=== PATIENT | female | born 1975 | race Caucasian/White ===

== ENCOUNTER 2016-11-25 19:37 | Inpatient (IN) | payer OTHER ==
[~2016-11-25] VITALS: Ht 172.7 cm; Wt 67.5 kg
[~2016-11-25 19:37] MED LIST: ADDE30CA PO; BACT800T5 PO; CLON1 PO; FLUC200T63 PO; LEVO1CAP3; METHO500 PO; OMEP40CA2; SYNT88TA PO
[2016-11-25 20:35] VITALS: BP 119/74; PULSE 69; RESP 16; TEMP 97.8; O2SAT 98
[2016-11-25] MEDS ORDERED: BUTA1CAP PO (20:35)
[2016-11-25] MEDS ORDERED: OMEP40CA2 PO (20:35)
[2016-11-25] MEDS ORDERED: ESZO1TAB PO (20:35)
[2016-11-25] MEDS ORDERED: ADDE30XR PO (20:35)
[2016-11-25] MEDS ORDERED: LEVO.125 PO (20:35)
[2016-11-25] MEDS ORDERED: CLON1 PO (20:35)
[2016-11-25] MEDS ORDERED: BACL10TA PO (20:35)
[2016-11-25 20:38] LABS: BASOPHIL % 1.1 % (0.0-2.0); EOSINOPHIL # 0.1 TH/MM3 (0-0.4); HEMATOCRIT 35.2 % (35.0-46.0); HEMO FLAGS DIFF FINAL; LYMPH % 45.4 % (9.0-44.0); LYMPHOCYTE # 2.1 TH/MM3 (1.0-4.8); MEAN CELL VOLUME 92.4 FL (80.0-100.0); MEAN CORPUSCULAR HEMOGLOBIN 32.8 PG (27.0-34.0); MEAN CORPUSCULAR HGB CONC 35.5 % (32.0-36.0); MONO % 8.4 % (0.0-8.0); NEUT % 43.1 % (16.0-70.0); PLATELET COUNT 181 TH/MM3 (150-450); RED CELL DISTRIBUTION WIDTH 13.7 % (11.6-17.2); WHITE BLOOD COUNT 4.6 TH/MM3 (4.0-11.0)
[2016-11-25 20:54] LABS: ANION GAP 8 MEQ/L (5-15); AST (GOT) 30 U/L (15-37); BICARBONATE 27.6 MEQ/L (21.0-32.0); BLOOD UREA NITROGEN 17 MG/DL (7-18); CHLORIDE 104 MEQ/L (98-107); GLOMERULAR FILTRATION RATE 88 ML/MIN (>89); POTASSIUM 3.6 MEQ/L (3.5-5.1); SODIUM (NA) 140 MEQ/L (136-145)
[2016-11-25 20:58] LABS: ACETAMINOPHEN 7.1 MCG/ML (10.0-30.0); ALKALINE PHOSPHATASE 67 U/L (45-117); ALT (GPT) 26 U/L (10-53); TOTAL BILIRUBIN ADULT 0.3 MG/DL (0.2-1.0)
--- NOTE | 2016-11-25 22:14 | PD ---
HPI Chief Complaint: Psychiatric Symptoms Time Seen by Provider: 22:09 Travel History International Travel<30 days: No Contact w/Intl Traveler<30days: No Traveled to known affect area: No History of Present Illness HPI 41-year-old female that presents to the ED for evaluation of psych. Patient was Jorge acted after apparent she contacted the suicidal hotline stating that she was suicidal. Patient denies this is all or homicidal ideation at this time.. She does have a history of ADHD, fibromyalgia, thyroid disease. Per my examination patient sleeping. She does not appear to be in acute distress. She denies any complaints to me. She has allergies to amoxicillin, azithromycin , penicillin. Patient has been here multiple times in the past. Unclear as to the length of time patient's has had this suicidal ideation but patient has been here for similar in the past. Denies any recent falls or injuries. No recent substance abuse. PFSH Past Medical History ADHD: Yes Asthma: Yes Autoimmune Disease: Yes (FIBROMYALGIA) Bipolar Disorder: Yes Anxiety: Yes Depression: Yes Diminished Hearing: No Endocrine: Yes (HYPOTHYROID) Fibromyalgia: Yes (15 YEARS) Gastrointestinal Disorders: No Implanted Vascular Access Dvce: No Thyroid Disease: Yes ?: Not : 1 Past Surgical History Section: Yes Gynecologic Surgery: Yes ( 11 YRS AGO) Other Surgery: Yes Social History Alcohol Use: No Tobacco Use: Yes (1 PPD) Substance Use: Yes (ADMITS TO USING MARIJUANA FREQUENTLY) Allergies-Medications (Allergen,Severity, Reaction): Coded Allergies: Azithromycin (Verified Allergy, Mild, nausea, 11/25/16) Amoxicillin (Verified Allergy, Unknown, 11/25/16) Penicillin (Verified Allergy, Unknown, UNKNOWN REACTION, 11/25/16) Reported Meds & Prescriptions Reported Meds & Active Scripts Active Reported Synthroid (Levothyroxine Sodium) 125 Mcg Tab 125 Mcg PO DAILY Baclofen 10 Mg Tab 10 Mg PO Q8HR PRN Klonopin (Clonazepam) 1 Mg Tab 1 Mg PO TID Fioricet (Cwauxjdvtb-Ivpdfgfqnrosd-Krxonnmo) 50-300-40 Mg Cap 1 Cap PO Q4H PRN Lunesta (Eszopiclone) 2 Mg Tab 2 Mg PO HS PRN Omeprazole 40 Mg Cap 40 Mg PO DAILY Adderall Xr 24 HR (Amphetamine/Dextroamphetamine) 30 Mg Cap 30 Mg PO DAILY Once daily in the morning. Review of Systems Except as stated in HPI: all other systems reviewed are Neg Physical Exam Narrative GENERAL: SKIN: Warm and dry. HEAD: Atraumatic. Normocephalic. EYES: Pupils equal and round. No scleral icterus. No injection or drainage. ENT: No nasal bleeding or discharge. Mucous membranes pink and moist. Tongue is midline. No uvula deviation. NECK: Trachea midline. No JVD. CARDIOVASCULAR: Regular rate and rhythm. No murmurs, S3, S4. RESPIRATORY: No accessory muscle use. Clear to auscultation. Breath sounds equal bilaterally. GASTROINTESTINAL: Abdomen soft, non-tender, nondistended. Hepatic and splenic margins not palpable. MUSCULOSKELETAL: Extremities without clubbing, cyanosis, or edema. No obvious deformities. Full range of motion of the upper and lower extremities bilaterally. 2+ pulses bilaterally. NEUROLOGICAL: Awake and alert. No obvious cranial nerve deficits. Motor grossly within normal limits. Five out of 5 muscle strength in the arms and legs. Normal speech. PSYCHIATRIC: Anxious mood and affect; insight and judgment normal. Data Data Last Documented VS Vital Signs Date Time Temp Pulse Resp B/P Pulse Ox O2 Delivery O2 Flow Rate FiO2 11/25/16 20:35 97.8 69 16 119/74 98 Orders Complete Blood Count With Diff (11/25/16 19:52) Comprehensive Metabolic Panel (11/25/16 19:52) Psych Screen (11/25/16 19:52) Drug Screen, Random Urine (11/25/16 19:52) Alcohol (Ethanol) (11/25/16 19:52) Salicylates (Aspirin) (11/25/16 19:52) Tylenol (Acetaminophen) (11/25/16 19:52) Labs Laboratory Tests Test 11/25/16 20:15 White Blood Count 4.6 TH/MM3 Red Blood Count 3.80 MIL/MM3 Hemoglobin 12.5 GM/DL Hematocrit 35.2 % Mean Corpuscular Volume 92.4 FL Mean Corpuscular Hemoglobin 32.8 PG Mean Corpuscular Hemoglobin 35.5 % Concent Red Cell Distribution Width 13.7 % Platelet Count 181 TH/MM3 Mean Platelet Volume 8.9 FL Neutrophils (%) (Auto) 43.1 % Lymphocytes (%) (Auto) 45.4 % Monocytes (%) (Auto) 8.4 % Eosinophils (%) (Auto) 2.0 % Basophils (%) (Auto) 1.1 % Neutrophils # (Auto) 2.0 TH/MM3 Lymphocytes # (Auto) 2.1 TH/MM3 Monocytes # (Auto) 0.4 TH/MM3 Eosinophils # (Auto) 0.1 TH/MM3 Basophils # (Auto) 0.0 TH/MM3 CBC Comment DIFF FINAL Differential Comment Sodium Level 140 MEQ/L Potassium Level 3.6 MEQ/L Chloride Level 104 MEQ/L Carbon Dioxide Level 27.6 MEQ/L Anion Gap 8 MEQ/L Blood Urea Nitrogen 17 MG/DL Creatinine 0.73 MG/DL Estimat Glomerular Filtration 88 ML/MIN Rate Random Glucose 83 MG/DL Calcium Level 8.6 MG/DL Total Bilirubin 0.3 MG/DL Aspartate Amino Transf 30 U/L (AST/SGOT) Alanine Aminotransferase 26 U/L (ALT/SGPT) Alkaline Phosphatase 67 U/L Total Protein 6.5 GM/DL Albumin 3.6 GM/DL Salicylates Level LESS THAN 1.7 MG/DL Acetaminophen Level 7.1 MCG/ML Ethyl Alcohol Level 6 MG/DL MDM Medical Decision Making Medical Screen Exam Complete: Yes Emergency Medical Condition: Yes Medical Record Reviewed: Yes Interpretation(s) CBC & BMP Diagram 11/25/16 20:15 tox negative Differential Diagnosis Depression versus suicidal ideation versus anxiety versus adjustment disorder versus mood disorder versus bipolar disorder versus schizophrenia versus paranoid disorder versus psychosis versus substance abuse versus alcohol abuse versus alcohol induced psychosis versus homicidality addition versus cutting versus personality disorder Narrative Course 41-year-old female that presents to the ED for evaluation of psych. Patient was properly examined and was found to have signs and symptoms consistent with appears to be psychiatric illness. No sign of acute medical distress at this time. Labs were drawn. Patient will be medically clear. Okay to be seen by psych. Mental health screening was discussed with the patient. Diagnosis Primary Impression: Suicidal ideation Elvin Qiu Nov 25, 2016 22:14
[2016-11-26] MEDS ORDERED: ALBUAER3 INH (00:16)
[2016-11-26 00:17] LABS: AMPHETAMINE, URINE POS (NEG); BARBITURATES, URINE POS (NEG); COCAINE, URINE NEG (NEG)
[2016-11-26 02:22] VITALS: BP 105/66; PULSE 67; RESP 18; O2SAT 97
[2016-11-26 10:13] VITALS: RESP 18
--- NOTE | 2016-11-26 16:43 | PD ---
History of Present Illness Chief Complaint: Psychiatric Symptoms Time Seen by Provider: 16:15 Travel History International Travel<30 Days: No Contact w/Intl Traveler<30days: No Known affected area: No Legal Status Legal Status: Jorge Act Jorge Act Signed By: Vickie Jennings History of Present Illness: History of Present Illness 41-year-old female with history of depression, ADHD, generalized anxiety disorder that presents to the ED under a BA for evaluation of psych. The BA report indicates that the patient called in to a medical hotline and made suicidal statements. Patient acknowledges that she called but that that she was calling her insurance company to get transportation to [facility] for admission. She states that after she was talking with the person she did admit to being depressed as well as suicidal. She reports that she has a long hx of psychiatric treatment including hospitalizations as well as having received ECT treatments. She has been off her antidepressants x 14 days after her PCP change her from Cymbalta to Fetzima and her insurance has not approved the medication. She also reports that he change her from Adderall XR to Adderall and it is not working. Patient reports the following symptoms depressed mood, increased need for sleep , irritability, feels like she has a black cloud hanging over her. Currently she feels she is not functioning and requires a medication adjustment. patietn has been isolative, withdrawn as well as not maintaining basic hygiene. PFSH Past Medical History ADHD: Yes Asthma: Yes Autoimmune Disease: Yes (FIBROMYALGIA) Bipolar Disorder: Yes Anxiety: Yes Depression: Yes Diminished Hearing: No Endocrine: Yes (HYPOTHYROID) Fibromyalgia: Yes (15 YEARS) Gastrointestinal Disorders: No Implanted Vascular Access Dvce: No Thyroid Disease: Yes ?: Not : 1 Past Surgical History Section: Yes Gynecologic Surgery: Yes ( 11 YRS AGO) Other Surgery: Yes Psychiatric History Psychiatric History Hx Psychiatric Treatment: HX OF BIPOLAR DISORDER, ANXIETY , ADHD. Previous hx of suicide attempt at age 20 years by overdose. History of Inpatient Treatment: Yes (Multiple. Last hospital8 months ago. ) Guns or firearms in home: No Social History Single female. Lives with partner of 5 years. Has a 15 year old child. Currently unemployed. She is applying for disability. Hx Alcohol Use: No Hx Tobacco Use: Yes (1 PPD) Hx Substance Use: Yes (ADMITS TO USING MARIJUANA FREQUENTLY) Substance Use Type: Alcohol, Marijuana, Nicotine/Cigarettes, Prescription Medications, Benzos (Valium,Xanax), Cocaine Other Substances Used: ADMITS TO USING ETOH ON OCCASION AND MARIJUANA Hx of Substance Use Treatment: Yes Family Psychiatric History None reported. Allergies-Medications (Allergen,Severity, Reaction): Coded Allergies: Azithromycin (Verified Allergy, Mild, nausea, 11/25/16) Amoxicillin (Verified Allergy, Unknown, 11/25/16) Penicillin (Verified Allergy, Unknown, UNKNOWN REACTION, 11/25/16) Reported Meds & Prescriptions Reported Meds & Active Scripts Active Reported Proair Hfa 8.5 GM Inh (Albuterol Sulfate) 90 Mcg/Act Aer 2 Puff INH Q4-6H PRN 108 mcg/actuation Synthroid (Levothyroxine Sodium) 125 Mcg Tab 125 Mcg PO DAILY Baclofen 10 Mg Tab 10 Mg PO Q8HR PRN Klonopin (Clonazepam) 1 Mg Tab 1 Mg PO TID Fioricet (Afuwhagymi-Suvtsmqysvxzf-Turrcsfq) 50-300-40 Mg Cap 1 Cap PO Q4H PRN Lunesta (Eszopiclone) 2 Mg Tab 2 Mg PO HS PRN Omeprazole 40 Mg Cap 40 Mg PO DAILY Adderall Xr 24 HR (Amphetamine/Dextroamphetamine) 30 Mg Cap 30 Mg PO DAILY Once daily in the morning. Review of Systems Except as stated in HPI: all other systems reviewed are Neg Psychiatric: COMPLAINS OF: Depression Exam Alert: Yes [place]: Person (ox4) Mood: Depressed Affect: Restricted Speech: Clear, Logical Eye Contact: Indirect Memory Intact: Comment (no impairement) Hallucinations: Other (negative) Delusions: No Suicidal: Ideation (deneis at present) Homicidal: Ideation (deneis any) Insight/Judgement Fair. Not impaired. [facility] Medical Decision Making Medical Record Reviewed: Yes Assessment/Plan 41 year old female with previous psychiatric history who reports she has been off her medication and is experiencing increase in her symptoms of depression. At present she is reporting that she is unable to function. She is denying current suicidal ideation. At this time the patient meets criteria for increase in level of care provided on inpatient unit. Orders Complete Blood Count With Diff (11/25/16 19:52) Comprehensive Metabolic Panel (11/25/16 19:52) Psych Screen (11/25/16 19:52) Drug Screen, Random Urine (11/25/16 19:52) Alcohol (Ethanol) (11/25/16 19:52) Salicylates (Aspirin) (11/25/16 19:52) Tylenol (Acetaminophen) (11/25/16 19:52) Diet Regular Basic (11/26/16 Breakfast) Diet Regular Basic (11/26/16 Lunch) Diet Regular Basic (11/26/16 Dinner) Results Vital Signs Date Time Temp Pulse Resp B/P Pulse Ox O2 Delivery O2 Flow Rate FiO2 11/26/16 10:13 18 Room Air 11/26/16 02:22 67 18 105/66 97 Room Air 11/25/16 20:35 97.8 69 16 119/74 98 11/25/16 20:24 18 Laboratory Tests Test 11/25/16 11/25/16 20:15 23:50 White Blood Count 4.6 Red Blood Count 3.80 Hemoglobin 12.5 Hematocrit 35.2 Mean Corpuscular Volume 92.4 Mean Corpuscular Hemoglobin 32.8 Mean Corpuscular Hemoglobin 35.5 Concent Red Cell Distribution Width 13.7 Platelet Count 181 Mean Platelet Volume 8.9 Neutrophils (%) (Auto) 43.1 Lymphocytes (%) (Auto) 45.4 Monocytes (%) (Auto) 8.4 Eosinophils (%) (Auto) 2.0 Basophils (%) (Auto) 1.1 Neutrophils # (Auto) 2.0 Lymphocytes # (Auto) 2.1 Monocytes # (Auto) 0.4 Eosinophils # (Auto) 0.1 Basophils # (Auto) 0.0 CBC Comment DIFF FINAL Differential Comment Sodium Level 140 Potassium Level 3.6 Chloride Level 104 Carbon Dioxide Level 27.6 Anion Gap 8 Blood Urea Nitrogen 17 Creatinine 0.73 Estimat Glomerular Filtration 88 Rate Random Glucose 83 Calcium Level 8.6 Total Bilirubin 0.3 Aspartate Amino Transf 30 (AST/SGOT) Alanine Aminotransferase 26 (ALT/SGPT) Alkaline Phosphatase 67 Total Protein 6.5 Albumin 3.6 Salicylates Level LESS THAN 1.7 Acetaminophen Level 7.1 Ethyl Alcohol Level 6 Urine Opiates Screen POS Urine Barbiturates Screen POS Urine Amphetamines Screen POS Urine Benzodiazepines Screen NEG Urine Cocaine Screen NEG Urine Cannabinoids Screen NEG Diagnosis Primary Impression: Suicidal ideation Additional Impressions: Major depressive disorder KIMMY (generalized anxiety disorder) Admitting Information Admitting Physician Requests: Admit (Dr. 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
[2016-11-26] MEDS ORDERED: MAGNESIUM HYDROXIDE SUSP 30 ML CUP PO PRN (16:45)
[2016-11-26] MEDS ORDERED: ALUMINUM/MAGNESIUM/SIMETH 30 ML CUP PO PRN (16:45)
[2016-11-26] MEDS ORDERED: ACETAMINOPHEN 325 MG TAB PO PRN (16:45)
[2016-11-26 17:15] VITALS: BP 115/82; PULSE 79; RESP 18; TEMP 98.3; O2SAT 98
[2016-11-26 18:00] VITALS: BP 115/82; PULSE 79; RESP 16; TEMP 98.3; O2SAT 98
[2016-11-26] MEDS: clonazePAM 1 MG TAB PO SCH (21:00)
[2016-11-27 04:50] VITALS: BP 97/58; PULSE 63; RESP 16; TEMP 98; O2SAT 98
[2016-11-27] MEDS: LEVOTHYROXINE SODIUM 125 MCG TAB PO SCH (05:39)
[2016-11-27] MEDS: PANTOPRAZOLE SOD 40 MG DELAYED RELEASE TAB PO SCH (08:53)
[2016-11-27] MEDS: clonazePAM 1 MG TAB PO SCH ×2 (08:54→21:46)
--- NOTE | 2016-11-27 09:47 | HHI.HP ---
Provisional Diagnosis Admission Date Nov 26, 2016 at 16:48 Bethany I. Adjustment disorder with mixed disturbance of emotions and conduct. Certification of Person's Competence To Provide Express and Informed Consent I have personally examined Kristi Mac , a person being served at [facility] on, Nov 27, 2016 09:41. Express and informed consent means consent voluntarily given in writing, by a competent person, after sufficient explanation and disclosure of the subject matter involved to enable the person to make a knowing and willful decision without any element of force, fraud, deceit, duress, or other form of constraint or coercion. This person is 18 years of age or older, is not now known to be incompetent to consent to treatment with a guardian advocate, and does not have a health care surrogate or proxy currently making medical treatment decisions. I have found this person to be one of the following: [X] Competent to provide express and informed consent, as defined above, for voluntary admission to this facility and is competent to provide express and informed consent for treatment. He/she has the consistent capacity to make well reasoned, willful, and knowing decisions concerning his or her medical or mental health treatment. The person fully and consistently understands the purpose of the admission for examination/placement and is fully capable of personally exercising all rights assured [place] Incompetent to provide express and informed consent to voluntary admission, and this is incompetent to provide express and informed consent to treatment. The person must be transferred to involuntary status and a petition for a guardian advocate filed with the Circuit Court. [] Refusing to provide express and informed consent to voluntary admission but is competent to provide express and informed consent for treatment. The person must be discharged or transferred to involuntary status. Form shall be completed within 24 hours of a person's arrival at the receiving facility and filed in the clinical record of each person: 1. Admitted on a voluntary basis 2. Permitted to provide express and informed consent to his/her own treatment 3. Allowed to transfer from involuntary to voluntary status 4. Prior to permitting a person to consent to his or her own treatment after having been previously found incompetent to consent to treatment. History of Present Illness Capacity: Has Capacity HPI This is a 41-year-old female who presents voluntarily for admission due to suicidal ideation. She reports a 1 month history of increasing symptoms of depressed mood, anhedonia, physical malaise, decreased energy, social withdrawal , difficulty sleeping, impaired self-esteem, difficulty with concentration, and more recently suicidal ideation without plan. She states this began approximately a month ago because her doctor was changing her medicines from long-acting Adderall to short acting Adderall, which she feels made her depressed. She also describes changing antidepressants from Cymbalta to that seem due to an interstitial problem with her urinary tract. Patient currently reports that she is unemployed because she is seeking disability. She lives with her boyfriend who does work. She has a teenage son who lives with her parents. According to reports reviewed by this physician, the patient does use marijuana and alcohol. Review of Systems ROS Limitations: Clinical Condition Past Psych History Psychological trauma history Denied Violence risk - others (6 mos) Minimal Violence risk - self (6 mos) Moderate Substance Abuse History Drugs/Alcohol past 12 months Alcohol and marijuana. Past Family Social History Coded Allergies: Azithromycin (Verified Allergy, Mild, nausea, 11/25/16) Amoxicillin (Verified Allergy, Unknown, 11/25/16) Penicillin (Verified Allergy, Unknown, UNKNOWN REACTION, 11/25/16) Reported Medications Albuterol 8.5 GM Inh (Proair Hfa 8.5 GM Inh)90 Mcg/Act Aer2 Puff INH Q4-6H PRN ( SHORTNESS OF BREATH) #1 INHALER Ref 0 108 mcg/actuation 11/26/16 Levothyroxine (Synthroid)125 Mcg Jat829 Mcg PO DAILY #30 TAB Ref 0 11/25/16 Baclofen 10 Mg Tab10 Mg PO Q8HR PRN (MUSCLE SPASM) Ref 0 11/25/16 Clonazepam (Klonopin)1 Mg Tab1 Mg PO TID #90 TAB Ref 0 11/25/16 Pcnwmgrsfv-Dfryrfkjkrkdj-Ztznqebr (Fioricet)50-300-40 Mg Cap1 Cap PO Q4H PRN ( HEADACHE) Ref 0 11/25/16 Eszopiclone (Lunesta)2 Mg Tab2 Mg PO HS PRN (INSOMNIA) Ref 0 11/25/16 Omeprazole 40 Mg Cap40 Mg PO DAILY #30 CAP Ref 0 11/25/16 Amphetamine-Dextroamphetamine ER 24 HR (Adderall Xr 24 HR)30 Mg Cap30 Mg PO DAILY #30 CAP Ref 0 Once daily in the morning. 11/25/16 Current Medications Medications (Trade) Dose Ordered Sig/Jose Guadalupe Route Start Time Stop Time Status Last Admin (Tylenol) 650 mg Q4H PRN PO 11/26/16 16:45 (Milk Of Magnesia Liq) 30 ml DAILY PRN PO 11/26/16 16:45 (Mag-Al Plus Susp Liq) 30 ml Q6H PRN PO 11/26/16 16:45 (Synthroid) 125 mcg DAILY@06 PO 11/27/16 06:00 11/27/16 05:39 (Protonix) 40 mg DAILY PO 11/27/16 09:00 11/27/16 08:53 (KlonoPIN) 1 mg BID PO 11/26/16 21:00 11/27/16 08:54 Family History Significant for mood disorders and anxiety disorders. Social History Unemployed. Lives with boyfriend. Continues to drink and use marijuana. Seeking social security disability. Patient's Strengths (min. 2) Verbal and resilient. Physical Exam GENERAL: SKIN: Warm and dry. HEAD: Normocephalic. EYES: No scleral icterus. No injection or drainage. NECK: Supple, trachea midline. No JVD or lymphadenopathy. CARDIOVASCULAR: Regular rate and rhythm without murmurs, gallops, or rubs. RESPIRATORY: Breath sounds equal bilaterally. No accessory muscle use. GASTROINTESTINAL: Abdomen soft, non-tender, nondistended. MUSCULOSKELETAL: No cyanosis, or edema. BACK: Nontender without obvious deformity. No CVA tenderness. Vital Signs Vital Signs Date Time Temp Pulse Resp B/P Pulse Ox O2 Delivery O2 Flow Rate FiO2 11/27/16 04:50 98.0 63 16 97/58 98 11/26/16 10:13 Room Air I/O 11/26/16 11/26/16 11/27/16 08:00 16:00 00:00 Intake Total 0 ml Balance 0 ml Mental Status Examination Speech: Unremarkable Orientation: x3 Memory: Unremarkable Thought Process: Organized, Goal Directed Thought Content: Unremarkable Hallucination Type: None Attention and Concentration: Good Suicidal Ideation: Yes Previous Suicide Attempts: No Homicidal Ideation: No Previous Homicide Attempts: No Insight: Fair Judgment: WNL Affect: Good Mood: Appropriate Motor Activity: Normal gait Assessment & Plan Problem List: (1) Adjustment disorder with mixed disturbance of emotions and conduct ICD Code: F43.25 Assessment & Plan Estimated LOS: 2 days patient to be placed back on her previous medicines as requested. This physician finds the patient to be somewhat manipulative and seeking disability for a condition that does not make her disabled from work. Deni Penaloza MD Nov 27, 2016 09:47
[2016-11-27] MEDS: DEXTROAMPHETAMINE/AMPHETAMINE XR 30 MG CAP PO SCH (10:00)
[2016-11-27] MEDS: lamoTRIgine 25 MG TAB PO SCH (10:00)
[2016-11-27] MEDS: DULoxetine HCl DR 30 MG CAP PO SCH (10:00)
[2016-11-27 19:04] VITALS: BP 98/53; PULSE 82; RESP 16; TEMP 98; O2SAT 97
[2016-11-27] MEDS: lamoTRIgine 100 MG TAB PO SCH (21:46)
[2016-11-28] MEDS: LEVOTHYROXINE SODIUM 125 MCG TAB PO SCH (06:30)
[2016-11-28] MEDS: PANTOPRAZOLE SOD 40 MG DELAYED RELEASE TAB PO SCH (08:35)
[2016-11-28] MEDS: lamoTRIgine 25 MG TAB PO SCH (08:35)
[2016-11-28] MEDS: DULoxetine HCl DR 30 MG CAP PO SCH (08:36)
[2016-11-28] MEDS: DEXTROAMPHETAMINE/AMPHETAMINE XR 30 MG CAP PO SCH (08:36)
[2016-11-28] MEDS: clonazePAM 1 MG TAB PO SCH ×2 (08:36→20:32)
[2016-11-28 09:50] LABS: ANION GAP 8 MEQ/L (5-15); BICARBONATE 27.4 MEQ/L (21.0-32.0); BLOOD UREA NITROGEN 17 MG/DL (7-18); CHLORIDE 104 MEQ/L (98-107); GLOMERULAR FILTRATION RATE 97 ML/MIN (>89); HDL CHOLESTEROL 44.6 MG/DL (40.0-60.0); LDL CHOLESTEROL 137 MG/DL (0-99); SODIUM (NA) 139 MEQ/L (136-145)
[2016-11-28 14:21] LABS: HEMOGLOBIN A1a 1.2 %; HEMOGLOBIN A1b 0.7 %; HEMOGLOBIN Ao 85.8 %; HEMOGLOBIN F 1.3 %; HEMOGLOBIN LA1C 1.9 %; HEMOGLOBIN P3 3.5 %
--- NOTE | 2016-11-28 16:26 | HHI.DS ---
Psychiatry Discharge Summary Inpatient Psychiatric care?: Yes Advance Directive: No Reason Not Provided: Due to Patient Condition Mental Health AdvanceDirective: No Health Care Proxy: No Admission Admission Date Nov 26, 2016 at 16:48 Admission Diagnosis: (1) Adjustment disorder with mixed disturbance of emotions and conduct ICD Code: F43.25 Brief History This is a 41-year-old female who presents voluntarily for admission due to suicidal ideation. She reports a 1 month history of increasing symptoms of depressed mood, anhedonia, physical malaise, decreased energy, social withdrawal , difficulty sleeping, impaired self-esteem, difficulty with concentration, and more recently suicidal ideation without plan. She states this began approximately a month ago because her doctor was changing her medicines from long-acting Adderall to short acting Adderall, which she feels made her depressed. She also describes changing antidepressants from Cymbalta to that seem due to an interstitial problem with her urinary tract. Patient currently reports that she is unemployed because she is seeking disability. She lives with her boyfriend who does work. She has a teenage son who lives with her parents. According to reports reviewed by this physician, the patient does use marijuana and alcohol. Tobacco Use In Past 30 Days: 5 or More Cigarettes/Day Alcohol Use: Never Hospital Course Participated in individual and group therapies procedures performed. Did well during her short stay and requested discharge with renewed prescriptions for Cymbalta and Adderall XR Results Blood Pressure 98 / 53 Vital Signs Date Time Temp Pulse Resp B/P Pulse Ox O2 Delivery O2 Flow Rate FiO2 11/27/16 19:04 98.0 82 16 98/53 97 11/26/16 10:13 Room Air Laboratory Tests Test 11/25/16 11/25/16 11/28/16 20:15 23:50 07:50 Red Blood Count 3.80 MIL/MM3 (4.00-5.30) Lymphocytes (%) (Auto) 45.4 % (9.0-44.0) Monocytes (%) (Auto) 8.4 % (0.0-8.0) Estimat Glomerular Filtration 88 ML/MIN (>89) Rate Salicylates Level LESS THAN 1.7 MG/DL (2.8-20.0) Acetaminophen Level 7.1 MCG/ML (10.0-30.0) Ethyl Alcohol Level 6 MG/DL (0-5) Urine Opiates Screen POS (NEG) Urine Barbiturates Screen POS (NEG) Urine Amphetamines Screen POS (NEG) Cholesterol Level 206 MG/DL (120-200) LDL Cholesterol 137 MG/DL (0-99) Laboratory Results Test 11/28/16 07:50 Hemoglobin A1c 5.2 % (4.3-6.0) Triglycerides Level 120 MG/DL (42-150) Cholesterol Level 206 MG/DL (120-200) LDL Cholesterol 137 MG/DL (0-99) HDL Cholesterol 44.6 MG/DL (40.0-60.0) Summary of Procedures None Pending results at discharge: No Medications # of Antipsychotic meds at D/C: 0 Approp Antipsych med options 1 - Minimum of three failed multiple trials of monotherapy. 2 - Documented plan to taper to monotherapy due to previous use of multiple meds OR cross-taper in progress at D/C. 3 - Documentation of augmentation of Clozapine. 4 - Justification other than those listed in allowable values 1-3, document here : Discharge Discharge Date: Nov 28, 2016 Discharge Diagnosis: (1) Adjustment disorder with mixed disturbance of emotions and conduct Diagnosis: Principal ICD Code: F43.25 Mental Status Exam at Disch At the time of discharge the patient hadsuicidal or homicidal ideation, plan or intent. Cognition was intact and she was verbally diana for safety. She was calm pleasant and cooperative and was making plans to see her outpatient physicians. Pt Condition on Discharge: Stable Discharge Disposition: Discharge Home Discharge Instructions Diet Instructions: As Tolerated, No Restrictions Activities you can perform: Regular-No Restrictions Discharge Time <= 30 minutes Discharge/Advance Care Plan Health Problems: (1) Adjustment disorder with mixed disturbance of emotions and conduct Goals to promote your health * To prevent worsening of your condition and complications * To maintain your health at the optimal level Directions to meet your goals Take your medications as prescribed Follow your dietary instruction Follow activity as directed Keep your appointments as scheduled Take your immunizations and boosters as scheduled If your symptoms worsen call your PCP, if no PCP go to Urgent Care Center or Emergency Room For 27/02 questions related to your inpatient stay or results of tests pending at discharge, please contact Dr. Deni Penaloza at Smoking is Dangerous to Your Health. Avoid second hand smoking Deni Penaloza MD Nov 28, 2016 16:26
[2016-11-28] MEDS ORDERED: DULO1CAP2 PO (16:30)
[2016-11-28] MEDS ORDERED: ADDE30XR PO (16:30)
[2016-11-28] MEDS ORDERED: CYANOCOBALAMIN 1000 MCG/ML VIAL IM ONE (17:00)
[2016-11-28 18:00] VITALS: BP 102/72; PULSE 73; RESP 18; TEMP 98; O2SAT 96
[2016-11-28] MEDS: lamoTRIgine 100 MG TAB PO SCH (20:33)
[2016-11-29 05:39] VITALS: BP 111/63; PULSE 18; RESP 18; TEMP 97.9
[2016-11-29] MEDS: LEVOTHYROXINE SODIUM 125 MCG TAB PO SCH (05:56)
[2016-11-29] MEDS: PANTOPRAZOLE SOD 40 MG DELAYED RELEASE TAB PO SCH (08:29)
[2016-11-29] MEDS: clonazePAM 1 MG TAB PO SCH (08:29)
[2016-11-29] MEDS: DEXTROAMPHETAMINE/AMPHETAMINE XR 30 MG CAP PO SCH (08:29)
[2016-11-29] MEDS: DULoxetine HCl DR 30 MG CAP PO SCH (08:29)
[2016-11-29] MEDS: lamoTRIgine 25 MG TAB PO SCH (08:29)
[2016-11-29] MEDS ORDERED: LAMO25 PO (11:16)
[2016-11-29] MEDS ORDERED: LAMO100 PO (11:16)
== END 2016-11-29 13:40 | disposition home or self-care (01) | DRG 882 ==
LOC: NEDAMB 19:37 → NEDA 11-26 16:48 → H260 11-26 17:02
PROVIDERS: ADMIT Psychiatry & Neurology Psychiatry; ATTEND Psychiatry & Neurology Psychiatry
DX: F43.25 Adjustment disorder with mixed disturbance of emotions and conduct (principal); R45.851 Suicidal ideations; E03.9 Hypothyroidism, unspecified; M79.7 Fibromyalgia; F17.210 Nicotine dependence, cigarettes, uncomplicated; F12.90 Cannabis use, unspecified, uncomplicated; F41.1 Generalized anxiety disorder
CPT/HCPCS: 80048; 80053; 80061; 80307; 82607; 83036; 85025; 99284

== ENCOUNTER 2017-03-20 11:53 | Emergency (ER) | payer MEDICAID, OTHER ==
[~2017-03-20] VITALS: Ht 165.1 cm; Wt 70.0 kg
[~2017-03-20 11:53] MED LIST changes: -ADDE30CA PO; +ADDE30XR PO; +ALBUAER3 INH; +BACL10TA PO; -BACT800T5 PO; +BUTA1CAP PO; +DULO1CAP2 PO; +ESZO1TAB PO; -FLUC200T63 PO; +LAMO100 PO; +LAMO25 PO; +LEVO.125 PO; -LEVO1CAP3; -METHO500 PO; -OMEP40CA2; +OMEP40CA2 PO; -SYNT88TA PO
[2017-03-20 11:55] VITALS: BP 129/77; PULSE 95; RESP 20; TEMP 97.4; O2SAT 100
--- NOTE | 2017-03-20 12:00 | PD ---
Physical Exam Time Seen by Provider: 11:58 Narrative 41yo F requesting refill on psych meds and voluntary admission for psych screen. Hx of ADHD, depression, anxiety. Klonopin, Adderall, Cymbalta has not been taken for 2 weeks. Having SI but does not have a plan. Has attempted suicide in past. Dad of suicide. Patient seen in triage. VS reviewed. Awaiting bed placement. Data Data Last Documented VS Vital Signs Date Time Temp Pulse Resp B/P Pulse Ox O2 Delivery O2 Flow Rate FiO2 03/20/17 11:55 97.4 95 20 129/77 100 Room Air MDM Supervised Visit with GOVIND: Eve May Mar 20, 2017 12:00
--- NOTE | 2017-03-20 12:30 | PD ---
HPI Chief Complaint: Psychiatric Symptoms Time Seen by Provider: 12:29 Travel History International Travel<30 days: No Contact w/Intl Traveler<30days: No Traveled to known affect area: No History of Present Illness HPI 41-year-old female with PMH of fibromyalgia, ADHD, depression, anxiety, ECT therapy presents to the ED for voluntary psychiatric evaluation. Patient denies SI but endorses increased anxiety and states that she starting to feel agoraphobic. States that she has not taken Klonopin, Adderall or Cymbalta for 2 weeks. She endorses previous history of suicide attempt. She states that her father from suicide. On presentation she denies somatic complaints. She states that her fibromyalgia pain has been a little worse over the last few days which she attributes to not taking her other medications and the stress of needing to seek medical attention. She's been taking Lortab for her pain. PFSH Past Medical History ADHD: Yes Asthma: Yes Autoimmune Disease: Yes (FIBROMYALGIA) Bipolar Disorder: Yes Anxiety: Yes Depression: Yes Diminished Hearing: No Endocrine: Yes (HYPOTHYROID) Fibromyalgia: Yes (15 YEARS) Gastrointestinal Disorders: No Implanted Vascular Access Dvce: No Thyroid Disease: Yes : 1 Past Surgical History Section: Yes Gynecologic Surgery: Yes ( 11 YRS AGO) Other Surgery: Yes Social History Alcohol Use: No Tobacco Use: Yes (1 PPD) Substance Use: Yes (ADMITS TO USING MARIJUANA FREQUENTLY) Allergies-Medications (Allergen,Severity, Reaction): Coded Allergies: Azithromycin (Verified Allergy, Mild, nausea, 03/20/17) Amoxicillin (Verified Allergy, Unknown, 03/20/17) Penicillin (Verified Allergy, Unknown, UNKNOWN REACTION, 03/20/17) Reported Meds & Prescriptions Reported Meds & Active Scripts Active Lamictal (Lamotrigine) 100 Mg Tab 50 Mg PO HS Lamictal (Lamotrigine) 25 Mg Tab 25 Mg PO DAILY Adderall Xr 24 HR (Amphetamine/Dextroamphetamine) 30 Mg Cap 30 Mg PO DAILY Duloxetine DR (Duloxetine HCl) 30 Mg Capdr 30 Mg PO DAILY Reported Proair Hfa 8.5 GM Inh (Albuterol Sulfate) 90 Mcg/Act Aer 2 Puff INH Q4-6H PRN 108 mcg/actuation Synthroid (Levothyroxine Sodium) 125 Mcg Tab 125 Mcg PO DAILY Baclofen 10 Mg Tab 10 Mg PO Q8HR PRN Klonopin (Clonazepam) 1 Mg Tab 1 Mg PO TID Fioricet (Gpggqaqtxp-Aorsiggkturon-Saoobxgb) 50-300-40 Mg Cap 1 Cap PO Q4H PRN Lunesta (Eszopiclone) 2 Mg Tab 2 Mg PO HS PRN Omeprazole 40 Mg Cap 40 Mg PO DAILY Adderall Xr 24 HR (Amphetamine/Dextroamphetamine) 30 Mg Cap 30 Mg PO DAILY Once daily in the morning. Review of Systems Except as stated in HPI: all other systems reviewed are Neg Physical Exam Narrative GENERAL: Well-nourished, well-developed white female in no acute distress. PSYCHIATRIC: No delusional thought processes. No hallucinations. SKIN: Focused skin assessment warm/dry. HEAD: Normocephalic. EYES: No scleral icterus. No injection or drainage. NECK: Supple, trachea midline. No JVD or lymphadenopathy. CARDIOVASCULAR: Regular rate and rhythm without murmurs, gallops, or rubs. RESPIRATORY: Breath sounds clear and equal bilaterally. No accessory muscle use. GASTROINTESTINAL: Abdomen soft, non-tender, nondistended. MUSCULOSKELETAL: No cyanosis, or edema. BACK: Nontender without obvious deformity. No CVA tenderness. Data Data Last Documented VS Vital Signs Date Time Temp Pulse Resp B/P Pulse Ox O2 Delivery O2 Flow Rate FiO2 03/20/17 15:37 98.3 77 18 119/77 100 03/20/17 14:56 Room Air Orders Complete Blood Count With Diff (03/20/17 12:28) Comprehensive Metabolic Panel (03/20/17 12:28) Urinalysis - C+S If Indicated (03/20/17 12:28) Psych Screen (03/20/17 12:28) Drug Screen, Random Urine (03/20/17 12:28) Alcohol (Ethanol) (03/20/17 12:28) Ed Urine Pregnancytest Poc (03/20/17 12:28) Clonazepam (Klonopin) (03/20/17 13:45) Labs Laboratory Tests Test 03/20/17 12:40 White Blood Count 7.3 TH/MM3 Red Blood Count 4.32 MIL/MM3 Hemoglobin 14.1 GM/DL Hematocrit 40.8 % Mean Corpuscular Volume 94.3 FL Mean Corpuscular Hemoglobin 32.6 PG Mean Corpuscular Hemoglobin 34.6 % Concent Red Cell Distribution Width 12.9 % Platelet Count 173 TH/MM3 Mean Platelet Volume 9.1 FL Neutrophils (%) (Auto) 69.1 % Lymphocytes (%) (Auto) 21.8 % Monocytes (%) (Auto) 7.4 % Eosinophils (%) (Auto) 1.0 % Basophils (%) (Auto) 0.7 % Neutrophils # (Auto) 5.0 TH/MM3 Lymphocytes # (Auto) 1.6 TH/MM3 Monocytes # (Auto) 0.5 TH/MM3 Eosinophils # (Auto) 0.1 TH/MM3 Basophils # (Auto) 0.1 TH/MM3 CBC Comment DIFF FINAL Differential Comment Urine Color YELLOW Urine Turbidity CLEAR Urine pH 5.5 Urine Specific [place] 1.022 Urine Protein NEG mg/dL Urine Glucose (UA) NEG mg/dL Urine Ketones NEG mg/dL Urine Occult Blood NEG Urine Nitrite NEG Urine Bilirubin NEG Urine Urobilinogen LESS THAN 2.0 MG/DL Urine Leukocyte Esterase NEG Urine RBC 1 /hpf Urine WBC 1 /hpf Urine Squamous Epithelial <1 /hpf Cells Urine Mucus FEW /lpf Microscopic Urinalysis Comment CULT NOT INDICATED Sodium Level 138 MEQ/L Potassium Level 3.9 MEQ/L Chloride Level 106 MEQ/L Carbon Dioxide Level 26.5 MEQ/L Anion Gap 6 MEQ/L Blood Urea Nitrogen 19 MG/DL Creatinine 0.72 MG/DL Estimat Glomerular Filtration 89 ML/MIN Rate Random Glucose 117 MG/DL Calcium Level 8.3 MG/DL Total Bilirubin 0.3 MG/DL Aspartate Amino Transf 12 U/L (AST/SGOT) Alanine Aminotransferase 20 U/L (ALT/SGPT) Alkaline Phosphatase 76 U/L Total Protein 7.1 GM/DL Albumin 3.9 GM/DL Urine Opiates Screen POS Urine Barbiturates Screen NEG Urine Amphetamines Screen POS Urine Benzodiazepines Screen NEG Urine Cocaine Screen NEG Urine Cannabinoids Screen NEG Ethyl Alcohol Level LESS THAN 3 MG/DL MDM Medical Decision Making Medical Screen Exam Complete: Yes Emergency Medical Condition: Yes Differential Diagnosis Adjustment disorder versus anxiety versus bipolar versus depression versus dementia versus electrolyte disorder versus malingering versus mood disorder versus ODD versus psychosis versus PTSD versus schizophrenia versus schizoaffective disorder versus substance-induced mood disorder versus other Narrative Course 41-year-old female with PMH of fibromyalgia, ADHD, depression, anxiety, ECT therapy presents to the ED for voluntary psychiatric evaluation. Patient denies SI but endorses increased anxiety and states that she starting to feel agoraphobic. States that she has not taken Klonopin, Adderall or Cymbalta for 2 weeks. She endorses previous history of suicide attempt. She states that her father from suicide. On presentation she denies somatic complaints. Vitals reviewed. Physical exam is unremarkable. Patient was administered 0.5 mg Klonopin. ED urine test negative. No concerning abnormalities of CBC, CMP, UA. Tox screen positive for amphetamine and opiates. The patient is medically cleared for psychiatric evaluation. Please see psychiatric note for disposition. Rosalie Fitzpatrick Mar 20, 2017 12:30
[2017-03-20 13:13] LABS: BASOPHIL # 0.1 TH/MM3 (0-0.2); BASOPHIL % 0.7 % (0.0-2.0); EOSINOPHIL # 0.1 TH/MM3 (0-0.4); HEMATOCRIT 40.8 % (35.0-46.0); HEMO FLAGS DIFF FINAL; LYMPH % 21.8 % (9.0-44.0); LYMPHOCYTE # 1.6 TH/MM3 (1.0-4.8); MEAN CELL VOLUME 94.3 FL (80.0-100.0); MEAN CORPUSCULAR HEMOGLOBIN 32.6 PG (27.0-34.0); MEAN CORPUSCULAR HGB CONC 34.6 % (32.0-36.0); MONO % 7.4 % (0.0-8.0); NEUT % 69.1 % (16.0-70.0); PLATELET COUNT 173 TH/MM3 (150-450); RED BLOOD COUNT 4.32 MIL/MM3 (4.00-5.30); RED CELL DISTRIBUTION WIDTH 12.9 % (11.6-17.2); WHITE BLOOD COUNT 7.3 TH/MM3 (4.0-11.0)
[2017-03-20 13:15] LABS: BLOOD, URINE NEG (NEG); GLUCOSE,URINE NEG (NEG); KETONE, URINE NEG (NEG); MUCUS URINE FEW /lpf (OCC); NITRITE,URINE NEG (NEG); PH, URINE 5.5 (5.0-8.5); SQUAMOUS EPITHELIAL CELL URINE <1 /hpf (0-5); URINE COLOR YELLOW (YELLW/STRAW)
[2017-03-20 13:16] LABS: COMMENT (UR) CULT NOT INDICATED; CULTURE IF INDICATED CULT NOT INDICATED
[2017-03-20 13:32] LABS: ALT (GPT) 20 U/L (10-53); ANION GAP 6 MEQ/L (5-15); AST (GOT) 12 U/L (15-37); BICARBONATE 26.5 MEQ/L (21.0-32.0); BLOOD UREA NITROGEN 19 MG/DL (7-18); CHLORIDE 106 MEQ/L (98-107); GLOMERULAR FILTRATION RATE 89 ML/MIN (>89); POTASSIUM 3.9 MEQ/L (3.5-5.1); SODIUM (NA) 138 MEQ/L (136-145)
[2017-03-20 13:35] LABS: ALCOHOL LESS THAN 3 MG/DL (0-5); ALKALINE PHOSPHATASE 76 U/L (45-117); TOTAL BILIRUBIN ADULT 0.3 MG/DL (0.2-1.0)
[2017-03-20] MEDS ORDERED: clonazePAM 0.5 MG TAB PO ONE (13:45)
[2017-03-20 14:56] VITALS: BP 119/77; PULSE 77; RESP 18; O2SAT 99
[2017-03-20 15:37] VITALS: BP 119/77; TEMP 98.3
--- NOTE | 2017-03-20 15:37 | PD ---
History of Present Illness Chief Complaint: Psychiatric Symptoms Time Seen by Provider: 15:20 Travel History International Travel<30 Days: No Contact w/Intl Traveler<30days: No Known affected area: No Legal Status Legal Status: Voluntary History of Present Illness: History of Present Illness HPI 41-year-old female with PMH of fibromyalgia, ADHD, depression, anxiety,who presents to the ED on a voluntary status requesting psychiatric evaluation. She is known [place] [facility] [place] with a recent psychiatric hospitalization in November after she ran out o f medication due to changes in medicaid. Today she is reporting that she has not had any of her psychiatric medication x 2 weeks due to having had her medicaid changed. She was aware of the change one month ago but " I was too disorganized to make the appointment". She is positive today for amphetamines and explains that she " saved the Adderall so that I can have it for today". She also tells me that she has a prescription for Cymbalta and Buspar but has not gotten them from the pharmacy. She is reporting feeling " jumpy", as well as feeling miserable. She states " My boyfriend told me to come in because I have gained 10 lbs in just 2 weeks". Patient is seen in her room . She has been reading a book and tells me " my ADHD is different because I can read and can retain what I read". There is no psychosis, no chey. No suicidal or homicidal ideation, intent or plan. When she is informed that she will be discharged states ' Why can't I be admitted? . I was admitted the last time for the same reason". At this time she does not meet criteria for inpatient treatment. I have discussed case with Dr. Penaloza who concurs with current evaluation and disposition plan. PFSH Past Medical History ADHD: Yes Asthma: Yes Autoimmune Disease: Yes (FIBROMYALGIA) Bipolar Disorder: Yes Anxiety: Yes Depression: Yes Diminished Hearing: No Endocrine: Yes (HYPOTHYROID) Fibromyalgia: Yes (15 YEARS) Gastrointestinal Disorders: No Implanted Vascular Access Dvce: No Thyroid Disease: Yes (HYPO) ?: Not : 1 Past Surgical History Section: Yes Gynecologic Surgery: Yes ( 11 YRS AGO) Other Surgery: Yes Psychiatric History Psychiatric History Hx Psychiatric Treatment: HISTORY MAJOR DEPRESSIVE DISORDER, KIMMY, AGORAPHOBIA History of Inpatient Treatment: Yes Guns or firearms in home: No Social History Single female. Lives with boyfriend. Unemployed. Hx Alcohol Use: No Hx Tobacco Use: Yes (1 PPD) Hx Substance Use: Yes (ADMITS TO USING MARIJUANA FREQUENTLY) Substance Use Type: Alcohol, Marijuana, Nicotine/Cigarettes, Prescription Medications, Benzos (Valium,Xanax), Cocaine Other Substances Used: ADMITS TO USING ETOH ON OCCASION AND MARIJUANA Hx of Substance Use Treatment: Yes Family Psychiatric History negative Allergies-Medications (Allergen,Severity, Reaction): Coded Allergies: Azithromycin (Verified Allergy, Mild, nausea, 03/20/17) Amoxicillin (Verified Allergy, Unknown, 03/20/17) Penicillin (Verified Allergy, Unknown, UNKNOWN REACTION, 03/20/17) Reported Meds & Prescriptions Reported Meds & Active Scripts Active Lamictal (Lamotrigine) 100 Mg Tab 50 Mg PO HS Lamictal (Lamotrigine) 25 Mg Tab 25 Mg PO DAILY Adderall Xr 24 HR (Amphetamine/Dextroamphetamine) 30 Mg Cap 30 Mg PO DAILY Duloxetine DR (Duloxetine HCl) 30 Mg Capdr 30 Mg PO DAILY Reported Proair Hfa 8.5 GM Inh (Albuterol Sulfate) 90 Mcg/Act Aer 2 Puff INH Q4-6H PRN 108 mcg/actuation Synthroid (Levothyroxine Sodium) 125 Mcg Tab 125 Mcg PO DAILY Baclofen 10 Mg Tab 10 Mg PO Q8HR PRN Klonopin (Clonazepam) 1 Mg Tab 1 Mg PO TID Fioricet (Ltdgceraja-Lzxipdtgmdldt-Fmljamum) 50-300-40 Mg Cap 1 Cap PO Q4H PRN Lunesta (Eszopiclone) 2 Mg Tab 2 Mg PO HS PRN Omeprazole 40 Mg Cap 40 Mg PO DAILY Adderall Xr 24 HR (Amphetamine/Dextroamphetamine) 30 Mg Cap 30 Mg PO DAILY Once daily in the morning. Review of Systems Except as stated in HPI: all other systems reviewed are Neg Exam Alert: Yes [place]: Person (ox4) Mood: Anxious Affect: Appropriate Speech: Clear, Logical Eye Contact: Normal Memory Intact: Comment (Not impaired) Hallucinations: Other (Negative) Delusions: No Suicidal: Ideation (Negative) Homicidal: Ideation (Negative.) Insight/Judgement Poor. Not impaired. MDM Medical Decision Making Medical Record Reviewed: Yes Assessment/Plan 41-year-old female with PMH of ADHD, depression, anxiety,who presents to the ED on a voluntary status requesting psychiatric evaluation as well as requesting refill on Adderall and Klonopin. . She is known [place] [facility] [place] with a recent psychiatric hospitalization in November after she ran out o f medication due to changes in medicaid. Today she is reporting that she has not had any of her psychiatric medication x 2 weeks due to having had her medicaid changed once again. She does not meet criteria for increased in level of care such as inpatient treatment. She is referred to her PCP and encouraged to make appointment with are psychiatrist. Cleared for discharge by psychiatry. . Orders Complete Blood Count With Diff (03/20/17 12:28) Comprehensive Metabolic Panel (03/20/17 12:28) Urinalysis - C+S If Indicated (03/20/17 12:28) Psych Screen (03/20/17 12:28) Drug Screen, Random Urine (03/20/17 12:28) Alcohol (Ethanol) (03/20/17 12:28) Ed Urine Pregnancytest Poc (03/20/17 12:28) Clonazepam (Klonopin) (03/20/17 13:45) Results Vital Signs Date Time Temp Pulse Resp B/P Pulse Ox O2 Delivery O2 Flow Rate FiO2 03/20/17 14:56 77 18 119/77 99 Room Air 03/20/17 12:45 79 03/20/17 11:55 97.4 95 20 129/77 100 Room Air Laboratory Tests Test 03/20/17 12:40 White Blood Count 7.3 Red Blood Count 4.32 Hemoglobin 14.1 Hematocrit 40.8 Mean Corpuscular Volume 94.3 Mean Corpuscular Hemoglobin 32.6 Mean Corpuscular Hemoglobin 34.6 Concent Red Cell Distribution Width 12.9 Platelet Count 173 Mean Platelet Volume 9.1 Neutrophils (%) (Auto) 69.1 Lymphocytes (%) (Auto) 21.8 Monocytes (%) (Auto) 7.4 Eosinophils (%) (Auto) 1.0 Basophils (%) (Auto) 0.7 Neutrophils # (Auto) 5.0 Lymphocytes # (Auto) 1.6 Monocytes # (Auto) 0.5 Eosinophils # (Auto) 0.1 Basophils # (Auto) 0.1 CBC Comment DIFF FINAL Differential Comment Urine Color YELLOW Urine Turbidity CLEAR Urine pH 5.5 Urine Specific [place] 1.022 Urine Protein NEG Urine Glucose (UA) NEG Urine Ketones NEG Urine Occult Blood NEG Urine Nitrite NEG Urine Bilirubin NEG Urine Urobilinogen LESS THAN 2.0 Urine Leukocyte Esterase NEG Urine RBC 1 Urine WBC 1 Urine Squamous Epithelial <1 Cells Urine Mucus FEW Microscopic Urinalysis Comment CULT NOT INDICATED Sodium Level 138 Potassium Level 3.9 Chloride Level 106 Carbon Dioxide Level 26.5 Anion Gap 6 Blood Urea Nitrogen 19 Creatinine 0.72 Estimat Glomerular Filtration 89 Rate Random Glucose 117 Calcium Level 8.3 Total Bilirubin 0.3 Aspartate Amino Transf 12 (AST/SGOT) Alanine Aminotransferase 20 (ALT/SGPT) Alkaline Phosphatase 76 Total Protein 7.1 Albumin 3.9 Urine Opiates Screen POS Urine Barbiturates Screen NEG Urine Amphetamines Screen POS Urine Benzodiazepines Screen NEG Urine Cocaine Screen NEG Urine Cannabinoids Screen NEG Ethyl Alcohol Level LESS THAN 3 Diagnosis Primary Impression: Adjustment disorder Psychiatrically Cleared: Yes Referrals: KWAKU PRIETO M.D. (PCP) Departure Forms: Tests/Procedures Patient Instructions: General Instructions, Mood Disorders (ED), Medical Clearance for Psychiatric Care (ED) Additional Instructions: DISCHARGE HOME DIAGNOSIS ADJUSTMENT DISORDER FOLLOW-UP WITH PCP NEEDED RETURN TO ED FOR WORSENING PROBLEMS Med/ Other Pt Specific Info: No Change to Meds Disposition: 01 DISCHARGE HOME Condition: Stable Problem Qualifiers Primary Impression: Adjustment disorder Qualified Code: F43.22 - Adjustment disorder with anxious mood Stephie Kay Mar 20, 2017 15:37
== END 2017-03-20 15:49 | disposition home or self-care (01) ==
LOC: NEPC 11:53 → NEPJ 15:49
DX: F43.22 Adjustment disorder with anxiety (principal); E03.9 Hypothyroidism, unspecified; F17.200 Nicotine dependence, unspecified, uncomplicated; Z79.899 Other long term (current) drug therapy; Z87.39 Personal history of other diseases of the musculoskeletal system and connective tissue; Z86.59 Personal history of other mental and behavioral disorders; Z87.09 Personal history of other diseases of the respiratory system
CPT/HCPCS: 80053; 80307; 81001; 84703; 85025; 99283

== ENCOUNTER 2017-11-02 20:36 | Emergency (ER) | payer MEDICAID ==
[~2017-11-02] VITALS: Ht 167.6 cm; Wt 64.8 kg
[~2017-11-02 20:36] MED LIST changes: -ESZO1TAB PO; +ESZO2 PO
[2017-11-02 20:46] VITALS: BP 122/84; PULSE 84; RESP 16; TEMP 98.3; O2SAT 100
[2017-11-02 22:21] LABS: BILIRUBIN, URINE NEG (NEG); BLOOD, URINE NEG (NEG); GLUCOSE,URINE NEG (NEG); KETONE, URINE TRACE mg/dL (NEG); NITRITE,URINE NEG (NEG); PH, URINE 5.5 (5.0-8.5); URINE COLOR YELLOW (YELLW/STRAW); URINE LEUKOCYTE ESTERASE NEG (NEG)
[2017-11-02 22:28] LABS: BACTERIA, URINE OCC /hpf; MUCUS URINE MANY /lpf (OCC); RBC, URINE 0-3 /hpf (0-3); SQUAMOUS EPITHELIAL CELL URINE > 8 /hpf (0-5); TRANSITIONAL EPI CELLS, URINE 0-5 /hpf
[2017-11-02] MEDS ORDERED: IBUP1TAB7 PO (22:32)
[2017-11-02] MEDS ORDERED: VIST50CA PO (22:32)
--- NOTE | 2017-11-02 23:41 | PD ---
HPI Chief Complaint: Pain: Acute or Chronic Time Seen by Provider: 23:00 Travel History International Travel<30 days: No Contact w/Intl Traveler<30days: No Traveled to known affect area: No History of Present Illness HPI The patient is a 42-year-old female that comes in with multiple somatic complaints. She has had this problem in the past. She complains of lymph node swelling, skin rashes, parasitic infections and brings plan fibers in her clothing to prove it. She also complains of ear pain, wrist pain, hand pain without any findings. She does have a psychiatrist and therapist. She is not suicidal nor homicidal. PFSH Past Medical History ADHD: Yes Asthma: Yes Autoimmune Disease: Yes (FIBROMYALGIA) Bipolar Disorder: Yes Anxiety: Yes Depression: Yes Diminished Hearing: No Endocrine: Yes (HYPOTHYROID) Fibromyalgia: Yes Gastrointestinal Disorders: No Implanted Vascular Access Dvce: No Thyroid Disease: Yes (HYPO) ?: Not LMP: 10/18/17 : 2 Para: 2 Past Surgical History Section: Yes (X1) Gynecologic Surgery: Yes ( 11 YRS AGO) Oral Surgery: Yes Other Surgery: Yes Social History Alcohol Use: No Tobacco Use: Yes (1 PPD) Substance Use: Yes ("SMOKES WEED ABOUT ONCE A YEAR" STATED 11/02/17) Allergies-Medications (Allergen,Severity, Reaction): Coded Allergies: azithromycin (Unverified Allergy, Mild, nausea, 11/02/17) amoxicillin (Unverified Allergy, Unknown, 11/02/17) penicillin G (Unverified Allergy, Unknown, UNKNOWN REACTION, 11/02/17) Reported Meds & Prescriptions Reported Meds & Active Scripts Active Reported Vistaril (Hydroxyzine Pamoate) 50 Mg Cap 50 Mg PO HS Ibuprofen 800 Mg Tab 800 Mg PO Q8H PRN Proair Hfa 8.5 GM Inh (Albuterol Sulfate) 90 Mcg/Act Aer 2 Puff INH Q4-6H PRN 108 mcg/actuation Synthroid (Levothyroxine Sodium) 125 Mcg Tab 112 Mcg PO DAILY Baclofen 10 Mg Tab 10 Mg PO Q8HR PRN Klonopin (Clonazepam) 1 Mg Tab 1 Mg PO TID Fioricet (Tvsmhrsqfl-Dnqthvwdmsqji-Ozbmbekw) 50-300-40 Mg Cap 1 Cap PO Q4H PRN Omeprazole 40 Mg Cap 40 Mg PO DAILY Adderall Xr 24 HR (Amphetamine/Dextroamphetamine) 30 Mg Cap 30 Mg PO BID Once daily in the morning. Review of Systems Except as stated in HPI: all other systems reviewed are Neg Physical Exam Narrative GENERAL: Well-nourished, well-developed patient. In no apparent distress other than her somatization and anxiety. Her vital signs are normal. SKIN: Focused skin assessment warm/dry. A few 1/2 cm erythematous nodules are seen on the neck but no other skin rashes noted. HEAD: Normocephalic. EYES: No scleral icterus. No injection or drainage. NECK: Supple, trachea midline. No JVD or lymphadenopathy. CARDIOVASCULAR: Regular rate and rhythm without murmurs, gallops, or rubs. RESPIRATORY: Breath sounds equal bilaterally. No accessory muscle use. GASTROINTESTINAL: Abdomen soft, non-tender, nondistended. MUSCULOSKELETAL: No cyanosis, or edema. BACK: Nontender without obvious deformity. No CVA tenderness. Data Data Last Documented VS Vital Signs Date Time Temp Pulse Resp B/P (MAP) Pulse Ox O2 Delivery O2 Flow Rate FiO2 11/02/17 20:46 98.3 84 16 122/84 (97) 100 Room Air Orders Orders Urinalysis - C+S If Indicated (11/02/17 22:00) Ed Urine Pregnancytest Poc (11/02/17 22:00) Labs Laboratory Tests Test 11/02/17 22:10 Urine Color YELLOW Urine Turbidity CLEAR Urine pH 5.5 Urine Specific [place] GREATER/EQUAL 1.030 Urine Protein TRACE mg/dL Urine Glucose (UA) NEG mg/dL Urine Ketones TRACE mg/dL Urine Occult Blood NEG Urine Nitrite NEG Urine Bilirubin NEG Urine Urobilinogen 0.2 MG/DL Urine Leukocyte Esterase NEG Urine RBC 0-3 /hpf Urine WBC 3-5 /hpf Urine Squamous Epithelial Cells > 8 /hpf Urine Transitional Epithelial Cells 0-5 /hpf Urine Bacteria OCC /hpf Urine Mucus MANY /lpf Microscopic Urinalysis Comment CULT NOT INDICATED MDM Medical Decision Making Medical Screen Exam Complete: Yes Emergency Medical Condition: Yes Medical Record Reviewed: Yes Interpretation(s) The urinalysis is normal except for trace ketones and culture is not indicated. Differential Diagnosis Multiple somatic complaints, acute psychosis, homicidal intent-unlikely, suicidal intent-unlikely, urinary tract infection Narrative Course The patient has multiple somatic complaints. She appears not to be a danger to herself or others. She says she will call her therapist/psychiatrist to get an appointment. She says she will do this if I do not Jorge act her. She does not want to be Jorge acted. I do not believe that by correcting will help her at this point. I cannot find any physical evidence of the complaints that she described. Diagnosis Primary Impression: Multiple somatic complaints Additional Instructions: As we discussed, follow-up with your therapist/psychiatrist. I cannot find any physical findings of the complaints that you described. Med/Other Pt SpecificInfo: No Change to Meds Disposition: 01 DISCHARGE HOME Condition: Stable Wyatt Vivar MD Nov 02, 2017 23:41
== END 2017-11-03 01:00 | disposition home or self-care (01) ==
LOC: PHED 20:36
DX: F45.0 Somatization disorder (principal)
CPT/HCPCS: 81001; 84703; 99283